=== PATIENT | male | born 1950 | race Caucasian/White ===

== ENCOUNTER 2020-12-13 08:46 | Emergency (ER) | payer OTHER ==
[~2020-12-13] VITALS: Ht 170.2 cm; Wt 79.4 kg
[~2020-12-13 08:46] MED LIST: OMNICAP TABLET0.4 MG; TESSALON200 MG PO; TUSSI PRES-B L120 M1 PO; ZITHROMAX TRI-500 MG PO
[2020-12-13] MEDS ORDERED: TRIAMCINOLONE A15 G3 TOP (10:30)
[2020-12-13] MEDS ORDERED: CETAPHIL237 ML TOP (10:30)
[2020-12-13] MEDS ORDERED: BETAMETHASONE D15 G2 TOP (10:30)
[2020-12-13] MEDS ORDERED: CETAPHIL226 GM TOP (10:30)
[2020-12-13] MEDS ORDERED: LYSIPLEX PLUS178 ML (10:31)
== END 2020-12-13 10:36 | disposition home or self-care (01) ==
LOC: ER 08:46
DX: L20.89 Other atopic dermatitis (principal)

== ENCOUNTER 2020-12-19 09:30 | Emergency (ER) | payer OTHER ==
[~2020-12-19] VITALS: Ht 165.1 cm; Wt 86.2 kg
[~2020-12-19 09:30] MED LIST changes: +BETAMETHASONE D15 G2 TOP; +CETAPHIL226 GM TOP; +CETAPHIL237 ML TOP; +LYSIPLEX PLUS178 ML; +TRIAMCINOLONE A15 G3 TOP
[2020-12-19] MEDS ORDERED: ATARAX25 MG PO (10:40)
[2020-12-19] MEDS ORDERED: CLARITIN10 M1 PO (10:40)
== END 2020-12-19 10:57 | disposition home or self-care (01) ==
LOC: ER 09:30
DX: R21 Rash and other nonspecific skin eruption (principal)

== ENCOUNTER 2023-10-10 07:49 | Outpatient (CLI) | payer OTHER ==
[~2023-10-10 07:49] MED LIST changes: +ATARAX25 MG PO; +CLARITIN10 M1 PO
== END 2023-10-10 08:01 | disposition home or self-care (01) ==
LOC: SONOGRAMA 07:49
DX: N18.1 Chronic kidney disease, stage 1 (principal)